=== PATIENT | male | born 1990 | race Caucasian/White ===

== ENCOUNTER 2018-03-09 13:59 | Emergency (ER) | payer OTHER ==
[2018-03-09 15:03] VITALS: BP 129/60; PULSE 77; TEMP 99.8; BMI 25.8
--- NOTE | 2018-03-09 15:05 | PDOC ---
Rapid Medical Evaluation Chief Complaint: Wound Medical Evaluation: 03/09/18 15:01 c/o wound to left calf x 3 days with increased redness around the wound. tactile temps at home. reports shaving legs at home. PE: Patient alert ox3. left calf erythema mild streaking noted with erythema to left calf with abscess draining pus A: cellulitis and abscess P; labs blood culture lactic acid patient to the ER for further management of care. 03/09/18 15:06 Discharge Disposition - Diagnosis Cellulitis and abscess of left leg - Referrals Referrals: Andrew Red [Primary Care Provider] - - Patient Instructions - Post Discharge Activity
[2018-03-09] MEDS ORDERED: SULFAMETHOXAZOLE/TRIMETHOPRIM 800MG/160MG D.S. TABLET PO ONE (15:46)
[2018-03-09] MEDS ORDERED: SULFAMETHOXAZOLE/TRIMETHOPRIM 800MG/160MG D.S. TABLET ONE (15:50)
--- NOTE | 2018-03-09 15:55 | PDOC ---
History of Present Illness - General Chief Complaint: Abscess Boil Stated Complaint: ABSCESS BOIL Time Seen by Provider: 03/09/18 14:59 - History of Present Illness Initial Comments: Anthony Griffin is an otherwise healthy 27yo man who presents with an abscess v cellulitis on his left calf that has worsened over the past week. He reports that he has had other pimples or abscesses on his legs in the past, but he has never needed treatment. He usually "pops" them on his own. The current infected area on his left leg started about a week ago and has gotten worse over the past week. Now the area is red, swollen, painful, and draining fluid. He was concerned about how the area looked and came to the ED for evaluation. He does report feeling feverish at home but has not checked his temperature. He denies any other medical conditions and does not take any medications at home. He does not work in healthcare or in a health care setting. Past History - Past Medical History Allergies/Adverse Reactions: Allergies Allergy/AdvReac Type Severity Reaction Status Date / Time No Known Allergies Allergy Verified 03/09/18 14:59 Home Medications: Ambulatory Orders Sulfamethoxazole/Trimethoprim [Bactrim Ds -] 1 tab PO BID #14 tablet 03/09/18 - Suicide/Smoking/Psychosocial Hx Smoking History: Current some day smoker Number of Cigarettes Smoked Daily: 10 Information on smoking cessation initiated: Yes Hx Alcohol Use: No Drug/Substance Use Hx: No Review of Systems - Review of Systems Comments:: General: No fevers, no chills, loss of appetite, malaise HEENT: No changes in vision or hearing, no congestion, no sore throat CV: No chest pain, no palpitations, no LE edema Pulm: No SOB, no cough, no wheezing GI: No nausea or vomiting, no change in bowel habits : No frequency, no urgency, no dysuria Musc: No back pain, no joint swelling, no recent injury Skin: See HPI Endo: No excessive thirst, no heat/cold intolerance Heme: No unusual bruising or bleeding, no swollen glands Neuro: No syncope, no focal weakness Vasc: No claudication Psych: No changes in mood, no SI/HI *Physical Exam - Vital Signs Last Vital Signs Temp Pulse Resp BP Pulse Ox 99.8 F H 77 22 H 129/60 99 03/09/18 15:00 11/02/18 15:00 03/09/18 15:00 03/09/18 15:00 03/09/18 15:00 - Physical Exam Comments: General: Comfortable, no acute distress HEENT: PERRL, EOMI, MMM, voice normal, no scleral icterus, normal neck ROM Cards: RRR, no murmur appreciated Pulm: Comfortable on room air. Clear bilaterally Abd: Soft, non-tender : No CVA tenderness Ext: Atraumatic. No LE edema. ROM intact. Strength equal bilaterally Vasc: WWP Skin: Left posterior-lateral calf with erythema, induration, draining wound ~ 1cm in diameter. Clear yellow fluid draining. TTP. No fluctuance. Bedside US with cobblestoning, no fluid collection c/w abscess Neuro: A&Ox3, CN grossly intact, speech normal, motor/sensory grossly intact and symmetric Psych: Appropriate to situation Medical Decision Making - Medical Decision Making 03/09/18 16:16 Anthony Griffin is a 27yo otherwise healthy man who presents with left lower extremity cellulitis that has worsened over one week. - Erythema, induration, pain consistent with cellulitis - Bedside ultrasound completed. No fluid collection that can be drained - 1 dose bactrim given in the ED - Will prescribe 7 days bactrim BID - Discussed home care, follow up, and return precautions with Mr Griffin. He states understanding and agreement with this plan. Seen and discussed with Dr Hand. Yasmeen Ledezma PGY1 *DC/Admit/Observation/Transfer Diagnosis at time of Disposition: Cellulitis and abscess of left leg - Discharge Dispostion Disposition: HOME Condition at time of disposition: Stable Decision to Admit order: No - Prescriptions Prescriptions: Sulfamethoxazole/Trimethoprim [Bactrim Ds -] 1 tab PO BID #14 tablet - Referrals Referrals: Andrew Red [Primary Care Provider] - [facility] [place] [Provider Group] - Patient Instructions Printed Discharge Instructions: DI for Cellulitis -- Adult Additional Instructions: Discharge Instructions: - You were seen in the ED for an infection of your left leg. There was no fluid collection that needs to be drained, but the area does appear infected. - You were given the first dose of an antibiotic called bactrim. A prescription for bactrim has been sent to your pharmacy. This should be taken twice per day for 7 days. Please finish the prescription; do not stop taking it early - For pain control at home, you may use acetaminophen (Tylenol) or ibuprofen ( Advil, Motrin). - Warm compresses are recommended as needed for comfort and to improve any drainage - Seek medical care if you have fevers to 101F, shivering chills, the infected area becomes worse rather than better, you have red streaking up your leg, or you have worsening drainage. - Follow up within the next week with your primary physician. If you need to establish care, you have been referred to the resident clinic. Print Language: SAMOAN - Post Discharge Activity
--- NOTE | 2018-03-09 15:55 | PDOC ---
Attending Attestation - Resident Resident Name: Yasmeen Ledezma - ED Attending Attestation I have performed the following: I have examined & evaluated the patient, The case was reviewed & discussed with the resident, I agree w/resident's findings & plan, Exceptions are as noted - HPI HPI: 03/09/18 15:45 27y M no pmhx presents with complaint of L calf pain.The pt states he had a small bump on his L calf last week that gradually got worse. Pt endorsed a low grade fever this morning. States he has had abcess in the past where he just squeezes it and it goes away. denies any trauma, itching, n/v, generalized weakness, no active infectoins elsewhere. Exam: erythema/induration: with central umbilication with drainage of serous fluid, unable to express pus Bedside US was performed, there is no drainable collection present. There is cobblestoning suggestive of a cellulitis. We'll treat the patient were for MRSA cellulitis with bactrim We'll discharge patient with outpatient management return precautions were discussed - Physicial Exam PE: 03/09/18 15:55 see above
== END 2018-03-09 16:07 | disposition home or self-care (01) ==
LOC: JER 13:59
PROC: BH48ZZZ Ultrasonography of Lower Extremity (ICD-10-PCS; principal; 2018-03-09)
DX: L03.116 Cellulitis of left lower limb (principal)
CPT/HCPCS: 76882-TC-LT-FY; 99283-25